=== PATIENT | male | born 2000 | race Caucasian/White ===

== ENCOUNTER 2021-04-26 03:23 | Emergency (ER) | payer OTHER, BC ==
[2021-04-26 03:35] VITALS: RESP 18; TEMP 98.2
[2021-04-26] MEDS ORDERED: IBUPROFEN 800 MG TAB PO STA (03:55)
[2021-04-26] MEDS ORDERED: ACETAMINOPHEN TAB 500 MG TAB PO STA (03:55)
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
[2021-04-26 05:12] LABS: Appearance,Urine Clear (Clear); Bilirubin,Urine Negative (Negative); Blood,Urine Negative (Negative); Color,Urine Yellow; Glucose,Urine (UA) Negative (Negative); Ketones,Urine Negative (Negative); Leukocyte Esterase,Urine Negative (Negative); Nitrite,Urine Negative (Negative); PH, Urine 6.5 (5.0-8.0); Protein,Urine Negative (Negative); Specific Gravity,Urine 1.023 (1.001-1.035)
[2021-04-26 05:16] VITALS: BP 117/62; PULSE 64
== END 2021-04-26 05:16 | disposition home or self-care (01) ==
LOC: EC 03:23
DX: Z04.1 Encounter for examination and observation following transport accident (principal); F17.200 Nicotine dependence, unspecified, uncomplicated
CPT/HCPCS: 70450; 71045; 72125; 72170; 81003; 99284